=== PATIENT | female | born 1990 | race Caucasian/White ===

== ENCOUNTER 2019-06-07 10:12 | Emergency (ER) | payer MEDICAID ==
[~2019-06-07] VITALS: Ht 167.6 cm; Wt 81.8 kg
[2019-06-07 10:15] VITALS: BP 113/68; Ht 167.6 cm; Wt 81.8 kg
[2019-06-07 11:53] LABS: HCG URINE NEGATIVE (NEGATIVE)
== END 2019-06-07 13:27 | disposition left against medical advice (07) ==
LOC: D.ER 10:12
PROVIDERS: Family Medicine
DX: M54.5 Low back pain (principal); V43.62XA Car passenger injured in collision with other type car in traffic accident, initial encounter; Y93.89 Activity, other specified; Y92.410 Unspecified street and highway as the place of occurrence of the external cause